=== PATIENT | female | born 1955 | race Caucasian/White ===

== ENCOUNTER 2016-09-21 10:24 | Emergency (ER) | payer OTHER ==
[~2016-09-21] VITALS: Ht 165.1 cm; Wt 62.6 kg
[~2016-09-21 10:24] MED LIST: ATORVASTATIN CA10 MG PO; CALCIUM 600-D 61 TAB PO; CEFTIN500 M1 PO; FISH OIL1000 MG PO; MASON NATURAL2000 IU PO; METHOCARBAMOL750 MG PO; MOTRIN 600 MG600 MG PO; MULTIVITAMIN1 TAB PO; REGLAN10 MG PO
--- NOTE | 2016-09-21 11:11 | ED HEADACHE COMPLAINT ---
History of Present Illness General Chief Complaint: Headache Stated Complaint: MIGRAINE X 5 DAYS Source: patient Exam Limitations: no limitations Vital Signs & Intake/Output Vital Signs & Intake/Output Vital Signs Date Time Temp Pulse Resp B/P Pulse O2 O2 Flow FiO2 Ox Delivery Rate 09/21 1625 97.5 90 18 124/70 97 09/21 1241 140/60 09/21 1232 97.5 88 18 152/69 98 09/21 1156 99 Room Air 09/21 1033 97.2 90 16 108/82 97 Room Air Allergies Coded Allergies: azithromycin (From ZITHROMAX) (Severe, ITCHY, RASH 09/21/16) cefaclor (From CECLOR) (Severe, ITCHY, RASH 09/21/16) Reconcile Medications Cefuroxime Axetil (Ceftin) 500 MG TABLET 1 TAB PO BID PNEUMONIA with food Triage Note: 61 Y/O FEMALE C/O "MIGRAINE HEADACHE" X 5 DAYS; STATES SHE HAS BEEN TAKING IBUPROPHEN 600MG AND FLEXERIL, AND PRESENT, DENIES ANY PAIN BUT REPORTS "ITS LIKE LIGHTENING WHEN IT HAPPENS". DENIES VISUAL CHANGES. DENIES N/V/D. SPEAKING CLEARLY WITH NO DEFICITS NOTED. Triage Nurses Notes Reviewed? yes HPI: Ms. Gross 61-year-old female with past medical history of HLD, LBBB and chronic back pain and into the emergency department for headache 3 days. Patient states the headache actually began 5 days ago but resolved and then returned again. She states the headache is primarily right-sided periorbital and directly behind the eye. No pain with moving her eye. The headache has been progressively worsening. She's been using Motrin 600 mg with some relief however the headache does return after several hours. She describes it as lightening bolts going into her temporal area. Patient also endorses some mild lacrimation when this occurs. No changes in vision. Positive photophobia positive nausea, no vomiting or diarrhea. No fever or chills. Has had headaches like this in the past and typically resolve after several days Motrin. It is only the second time she states that she is required to present to the ED for headache. Of note, patient was in self defense class in mid-August when she had a fall. She landed on her bottom but then hit her head. No LOC. (ALFREDO PÉREZ,MADDIE) Past History Travel History Traveled to [place] past 21 day No Medical History Any Pertinent Medical History? 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 No (MADDIE FUENTES MD) Review of Systems Review of Systems Constitutional: Reports: see HPI. Eyes: Reports: no symptoms. Ears, Nose, Throat, Mouth: Reports: no symptoms. Respiratory: Reports: no symptoms. Cardiovascular: Reports: no symptoms. Gastrointestinal/Abdominal: Reports: no symptoms. Genitourinary: Reports: no symptoms. Musculoskeletal: Reports: no symptoms. Skin: Reports: no symptoms. Neurological/Psychological: Reports: headache. All Other Systems: Reviewed and Negative (MADDIE FUENTES MD) Physical Exam Physical Exam General Appearance: well developed/nourished, no apparent distress, alert, awake , anxious Head: atraumatic, normal appearance Eyes: Bilateral: normal appearance, PERRL, EOMI. Ears, Nose, Throat: normal pharynx, normal ENT inspection, hearing grossly normal Neck: normal inspection, supple, full range of motion Respiratory: normal breath sounds, chest non-tender, no respiratory distress Cardiovascular: regular rate/rhythm Gastrointestinal: normal bowel sounds, soft, non-tender Back: normal inspection, normal range of motion Extremities: normal inspection, normal capillary refill, normal range of motion Psychiatric: awake, alert, oriented x 3 Cranial Nerves: normal hearing, normal speech, PERRL Coordination/Gait: normal finger to nose, normal gait Motor/Sensory: no motor/sensory deficits Skin: intact, normal color Core Measures Severe Sepsis Present: No Septic Shock Present: No (MADDIE FUENTES MD) Progress Differential Diagnosis: cluster YEE, IC mass/tumor, migraine YEE, musculoskeletal pain, sinusitis, tension YEE, temporal arteritis Plan of Care: 61-year-old female with headache 5 days. No changes in vision. Patient states this is similar to previous migraines. She had a traumatic fall approximately 1 month ago. Neuro exam is completely unremarkable so unlikely intercranial hemorrhage given the length of time that has occurred since the trauma and today 's headache. Patient also has some lacrimation which occurs occasionally, likely secondary to a cluster-like component of the headache. We will administer Reglan, magnesium, IVF and reassess. Patient states the headache is gone however she occasionally has a small "lightening bolt". Then Benadryl and IV Tylenol as she says the headache has somewhat returned. Given a second liter of fluids. No evidence of sinus pain bilaterally upon indirect percussion to suggest sinusitis. Patient is afebrile and well-appearing. Patient ambulated out of the ED. Significant improvement in headache and symptoms. Follow-up with PMD as needed. Patient was also given return precautions. (MADDIE FUENTES MD) Departure Departure Time of Disposition: 1625 Disposition: HOME OR SELF CARE Condition: Stable Clinical Impression Primary Impression: Migraine aura, persistent, intractable Referrals: JANET FARMER APRN (PCP/Family) Additional Instructions: Please use Motrin 600 mg or Tylenol 650 mg together every 6 hours as needed for the headache. He can also use Benadryl to help with the migraine. The patient helpful for to follow-up with a neurologist in 1-2 days. You can see her primary care doctor for referral. If you're unable to keep anything down or any other concerning symptoms please return to emergency department for further evaluation Departure Forms: Customer Survey General Discharge Information (MADDIE FUENTES MD) PA/SOLE LEVELING MACHINE OPERATOR Co-Sign Statement Statement: ED Attending supervision documentation- [] I saw and evaluated the patient. I have also reviewed all the pertinent lab results and diagnostic results. I agree with the findings and the plan of care as documented in the PA's/SOLE LEVELING MACHINE OPERATOR's documentation. [X I have reviewed the ED Record and agree with the PA's/SOLE LEVELING MACHINE OPERATOR's documentation. [] Additions or exceptions (if any) to the PAs/SOLE LEVELING MACHINE OPERATOR's note and plan are summarized below: [] (BETTY CHARLES DO
[2016-09-21 16:25] VITALS: BP 124/70
== END 2016-09-21 16:38 ==
LOC: ERH 10:24
DX: G43.119 Migraine with aura, intractable, without status migrainosus (principal)
CPT/HCPCS: 96374; 96375; J0131; J1200; J2765

== ENCOUNTER 2016-10-02 13:20 | Emergency (ER) | payer OTHER ==
[~2016-10-02] VITALS: Ht 165.1 cm; Wt 61.2 kg
[2016-10-02 13:47] LABS: ABSOLUTE BASOPHIL COUNT 0 /CUMM (0.0-0.2); ABSOLUTE EOSINOPHIL COUNT 0 /CUMM (0.0-0.7); ABSOLUTE GRANULOCYTE CT 7.2 /CUMM (1.4-6.5); ABSOLUTE LYMPH COUNT 1.5 /CUMM (1.2-3.4); ABSOLUTE MONOCYTE COUNT 0.6 /CUMM (0.10-0.60); BASOPHIL % 0.3 % (0.0-2.0); EOSINOPHIL % 0.4 % (0-5); GRANULOCYTE % 77.5 % (42.2-75.2); HEMATOCRIT 45.5 % (37-47); MEAN CORPUSCULAR HGB 30.2 PG (27.0-31.0); MEAN CORPUSCULAR HGB CONC 34.7 G/DL (33.0-37.0); MEAN PLATELET VOLUME 7.9 FL (7.4-10.4); PLATELET COUNT 311 /CUMM (130-400); RBC DISTRIBUTION WIDTH 12.6 % (11.5-14.5); RED BLOOD CELL CT 5.23 /CUMM (4.20-5.40); WHITE BLOOD CELL COUNT 9.3 /CUMM (4.8-10.8)
--- NOTE | 2016-10-02 15:12 | ED GENERAL ADULT ---
History of Present Illness General Chief Complaint: Abdominal Pain/Flank Pain Stated Complaint: ABD PAIN Source: patient Exam Limitations: no limitations Allergies Coded Allergies: azithromycin (From ZITHROMAX) (Severe, ITCHY, RASH 09/21/16) cefaclor (From CECLOR) (Severe, ITCHY, RASH 09/21/16) Reconcile Medications Celecoxib (Unknown Strength) CAPSULE (Unknown Dose) UNKNOWN (Reported) Propranolol LA (Inderal LA) (Unknown Strength) CAP.SA.24H (Unknown Dose) UNKNOWN (Reported) Triage Note: PT SIB [facility] FOR PRODUCTIVE COUGH, ABDOMINAL PAIN WITH N/V, CP. PT DENIES SOB. PT STATES SHE HAS BEEN FEELING HOT AND COLD. SYMPTOMS STARTED 4 DAYS AGO Triage Nurses Notes Reviewed? yes Onset: Abrupt Duration: day(s): Timing: recent history HPI: 10/02/16 4:22 pm 61-year-old female presents to the emergency department for abdominal pain. According to the patient she has a history of migraine headaches. She was seen and evaluated in the emergency department for migraine headache September 21. The YEE'S improved, now over the last 72 hours. She said that she was treated with Celebrex and protonix. Subsequently she developed epigastric and lower quadrant abdominal pain. She was also taking Motrin. She admits to nausea and vomiting. She was seen by her primary care doctor referred to the emergency department to exclude appendicitis and and/or diverticulitis. The onset of the symptoms were abrupt, the duration has been last 72 hours, the severity is significant; as her symptoms required to come to the emergency department for care. She does have lower quadrant abdominal pain and tenderness. (BETTY CHARLES DO) Vital Signs & Intake/Output Vital Signs & Intake/Output Vital Signs Date Time Temp Pulse Resp B/P B/P Pulse O2 O2 Flow FiO2 Mean Ox Delivery Rate 10/03 2023 99.3 84 18 130/64 97 Room Air 10/02 1728 99.0 89 18 158/65 98 Room Air 10/02 1716 Room Air 10/02 1522 98.0 87 18 144/75 98 Room Air 10/02 1324 98.5 94 20 137/81 98 Room Air Past History Travel History Traveled to [place] past 21 day No Medical History Any Pertinent Medical History? 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 No (BETTY CHARLES DO) Review of Systems Review of Systems Constitutional: Reports: fever. EENTM: Denies: visual changes. Respiratory: Reports: cough. Denies: short of breath. Cardiovascular: Reports: see HPI. GI: Reports: abdominal pain. Genitourinary: Reports: no symptoms. Musculoskeletal: Reports: muscle pain. Skin: Denies: rash. Neurological/Psychological: Reports: see HPI. Hematologic/Endocrine: Reports: no symptoms. (BETTY CHARLES DO) Physical Exam Physical Exam General Appearance: well developed/nourished, alert, awake, anxious, mild distress Head: atraumatic, normal appearance Eyes: Bilateral: normal appearance, PERRL, EOMI. Ears, Nose, Throat: normal pharynx, normal ENT inspection Neck: normal inspection, supple, full range of motion, no midline tenderness, NO NUCHAL RIGIDITY Respiratory: normal breath sounds, chest non-tender, no respiratory distress, lungs clear Cardiovascular: regular rate/rhythm Peripheral Pulses: 4+ radial (R), 4+ radial (L) Gastrointestinal: soft, tenderness, LLQ Back: normal range of motion Extremities: normal inspection, normal range of motion, no edema Neurologic/Psych: no motor/sensory deficits, awake, alert, oriented x 3 Skin: intact, normal color, warm/dry Core Measures ACS in differential dx? No CVA/TIA Diagnosis: No Severe Sepsis Present: No Septic Shock Present: No (BETTY CHARLES DO) Progress Differential Diagnoses I considered the following diagnoses in my evaluation of the patient: Plan of Care: Orders Procedure Date/time Status Add-on Test (ER Only) 10/02 2022 Active Add-on Test (ER Only) 10/02 1942 Active RAPID VIRAL INFLUENZA A 10/02 1942 Complete Add-on Test (ER Only) 10/02 190 Active TROPONIN LEVEL 10/02 133 Complete LIPASE 10/02 133 Complete AMYLASE 10/02 133 Complete URINALYSIS 10/02 1325 Complete COMPREHENSIVE METABOLIC PANEL 10/02 1325 Complete CBC WITHOUT DIFFERENTIAL 10/02 132 Complete EKG 10/02 1325 Active Laboratory Tests 10/02/16 1828: Amylase Cancelled, Lipase Cancelled 10/02/16 1530: Urine Color YEL, Urine Clarity CLEAR, Urine pH 6.0, Ur Specific [place] 1.025, Urine Protein NEG, Urine Ketones TRACE H, Urine Nitrite NEG, Urine Bilirubin NEG, Urine Urobilinogen 0.2, Ur Leukocyte Esterase NEG, Ur Microscopic SEDIMENT EXAMINED, Urine RBC RARE, Urine WBC 3-5 H, Ur Epithelial Cells MOD H, Urine Mucus MANY H, Urine Hemoglobin TRACE-INTACT, Urine Glucose NEG 10/02/16 1337: Anion Gap 13, Estimated GFR > 60, BUN/Creatinine Ratio 22.9, Glucose 108 H, Calcium 10.2, Total Bilirubin 0.8, AST 25, ALT 43, Alkaline Phosphatase 82, Troponin I < 0.01, Total Protein 7.6, Albumin 4.8, Globulin 2.8, Albumin/ Globulin Ratio 1.7, Amylase 59, Lipase 150, CBC w Diff NO MAN DIFF REQ, RBC 5.23 , MCV 87.0, MCH 30.2, RDW 12.6, MPV 7.9, Gran % 77.5 H, Lymphocytes % 15.6 L, Monocytes % 6.2, Eosinophils % 0.4, Basophils % 0.3, Absolute Granulocytes 7.2 H, Absolute Lymphocytes 1.5, Absolute Monocytes 0.6, Absolute Eosinophils 0, Absolute Basophils 0, PUBS MCHC 34.7 Microbiology 10/02 2054 NASOPHARYN: Influenza Virus A & B Rapid Smear - COMP Initial ED EKG: NSR, LBBB Prior EKG: unchanged (BETTY CHARLES DO) Diagnostic Imaging: Viewed by Me: Radiology Read. Discussed w/RAD: Radiology Read. CXR Impression: PATIENT: ROYAL CHAVES PRESENT AGE: 61 PATIENT ACCOUNT NO: [id number] : 53 LOCATION: [facility] ORDERING PHYSICIAN: BETTY CHARLES DO SERVICE DATE: 10/02/16 EXAM TYPE: RAD - XRY-CHEST XRAY, PA AND LATERAL EXAMINATION: XR CHEST CLINICAL INFORMATION: Cough and weakness. COMPARISON: Chest x-ray 04/25/2016 TECHNIQUE: 2 views of the chest were obtained. FINDINGS: No significant abnormality is noted involving the heart , lungs, mediastinum, bony thorax or soft tissues. IMPRESSION: Unremarkable examination. DICTATED BY: CM HOFFMAN MD DATE/TIME DICTATED:10/02/162017 VEHICLE DELIVERY WORKER:OFELIA DATE/TIME TRANSCRIBED:10/02/162017 CONFIDENTIAL, DO NOT COPY WITHOUT APPROPRIATE AUTHORIZATION. <Electronically signed in Other Vendor System> SIGNED BY: CM HOFFMAN MD 10/02/162022 (MARISELA ARMENDARIZ MD) Departure Departure Condition: Stable Clinical Impression Primary Impression: Abdominal pain Referrals: JANET FARMER APRN (PCP/Family) Departure Forms: Customer Survey General Discharge Information Comments CT of ABDOMEN: IMPRESSION: Normal appendix is not seen but there is no suspicious finding around the cecum. No soft tissue stranding or fluid collection. Correlation recommended clinically. There is fatty insinuation's within the region of the pancreatic head of uncertain etiology. I would recommend MR to further characterize. Numerous areas of low attenuation in the kidneys may represent evolving cysts. Recommend ultrasound if clinically warranted DICTATED BY: BETTY NGUYEN MD DATE/TIME DICTATED:10/02/161738 VEHICLE DELIVERY WORKER:OFELIA DATE/TIME TRANSCRIBED:10/02/161738 CONFIDENTIAL, DO NOT COPY WITHOUT APPROPRIATE AUTHORIZATION. <Electronically signed in Other Vendor System> SIGNED BY: BETTY NGUYEN MD 10/02/161822 CT RESULTS REVIEWED WITH PATIENT INCLUDING FINDINGS RELEATED TO PANCREATIC HEAD AND RENAL CYSTS. SHE WAS INFORMED OF THE NEED FOR FOLLOW UP. PATIENT UNDERSTOOD CONCERNS AND NEED TO FOLLOW UP. SHE REQUESTED A SECOND LITER OF FLUID. PATIENT SIGNED OUT SIGNED OUT TO DR ARMENDARIZ, FOLLOW CHEST X-RAY, REEVALUATION, LIKELY DISCHARGE. (BETTY CHARLES DO) Departure Disposition: HOME OR SELF CARE Additional Instructions: FOLLOW UP WITH YOUR PMD RETURN FOR ANY CONCERNS (KALA PÉREZ,MARISELA Sanchez) Critical Care Note Critical Care Note Critical Care Time: non-applicable (BETTY CHARLES DO)
[2016-10-02] MEDS ORDERED: INDERAL LA60 M1 (16:08)
[2016-10-02] MEDS ORDERED: CELECOXIB200 M1 (16:08)
--- NOTE | 2016-10-02 18:23 | CT SCAN REPORT ---
EXAMINATION: CT ABDOMEN AND PELVIS WITH CONTRAST CLINICAL INFORMATION: Pain, rule out appendicitis COMPARISON CT chest dated 08/09/2014 TECHNIQUE: Multidetector volumetric imaging was performed of the abdomen and pelvis before and after the IV administration of 94 mL of Optiray 320 intravenous contrast. Sagittal and coronal reformatted images were obtained on the technologist's workstation. DLP: 242 mGy-cm FINDINGS: The lung bases are grossly clear. Upper abdomen Liver and spleen within normal limits. Pancreas shows some fatty insinuation in the region of the head of the pancreas. No defined mass but I would recommend an ultrasound here to further evaluate. This appears mildly more prominent than previous exam. This may be done on an outpatient basis. An acute finding is not present. This may represent [place] patient's baseline but short-term follow-up may also be useful versus MR to further evaluate this time. The kidneys are in the early nephrographic phase. Some subcentimeter areas of nonenhancement on the right may represent evolving cysts. Impossible to completely characterize on this exam. Simple appearing cyst in the lower pole on the left with other subcentimeter lesions around it which again may represent evolving cysts. The aorta is normal in caliber. The bowel pattern is felt to be nonobstructing. There is no bulky adenopathy here. No free fluid. CT PELVIS: A normal appendix is not visualized. Correlate 4 history of appendectomy. No suspicious fluid or change around the cecum is noted. No free fluid in the deep pelvis. Uterus lies to the left of midline. There are some scattered diverticula disease. No convincing evidence for diverticulitis. IMPRESSION: Normal appendix is not seen but there is no suspicious finding around the cecum. No soft tissue stranding or fluid collection. Correlation recommended clinically. There is fatty insinuation's within the region of the pancreatic head of uncertain etiology. I would recommend MR to further characterize. Numerous areas of low attenuation in the kidneys may represent evolving cysts. Recommend ultrasound if clinically warranted
--- NOTE | 2016-10-02 20:23 | RADIOLOGY REPORT ---
EXAMINATION: XR CHEST CLINICAL INFORMATION: Cough and weakness. COMPARISON: Chest x-ray 04/25/2016 TECHNIQUE: 2 views of the chest were obtained. FINDINGS: No significant abnormality is noted involving the heart, lungs, mediastinum, bony thorax or soft tissues. IMPRESSION: Unremarkable examination.
[2016-10-02 21:40] VITALS: BP 139/71
== END 2016-10-02 22:20 ==
LOC: ERH 13:20
PROVIDERS: Emergency Medicine
DX: R10.32 Left lower quadrant pain (principal)
CPT/HCPCS: 86317; 87798; 74177; 81001; 87804; 87804-59; 93005; 93010